=== PATIENT | male | born 1990 | race Caucasian/White ===

== ENCOUNTER 2021-01-22 08:40 | Emergency (ER) | payer OTHER ==
[~2021-01-22] VITALS: Ht 177.8 cm; Wt 117.9 kg
[~2021-01-22 08:40] MED LIST: ATIVAN1 MG PO; BACTRIM DS TAB1 EACH PO; DIFLUCAN150 MG PO; IMODIUM MULTI-1 EACH PO; LAMISIL AT 1% C12 G1 TP; LAMOTRIGINE200 MG PO; NORCO 5-325 TA1 EACH PO; OXCARBAZEPINE600 MG PO; TOPAMAX 100 MG100 MG NG; TOPAMAX 100 MG100 MG PO; TOPAMAX100 MG PO; ZOFRAN ODT4 MG PO; ZOFRAN4 MG PO; [UNRECOGNIZED DRUG - REMARK]
[2021-01-22 10:00] LABS: ABSOLUTE NEUTROPHILS 3.4 thou/uL (1.4-8.2); BASOPHILS 0.8 % (0.0-2.0); EOSINOPHILS 9.8 % (0.0-3.0); HEMATOCRIT 42.7 % (42.0-52.0); HEMOGLOBIN 14.6 gm/dL (14.0-18.0); LYMPHOCYTES 27.9 % (24.0-44.0); MCHC 34.1 g/dL (28.0-37.0); MONOCYTES 8.9 % (1.0-8.0); PLATELET COUNT 193 thou/uL (150-400); POLYS 52.6 % (36.0-66.0); RDW 12.4 % (10.5-14.5); WBC 6.4 thou/uL (4.0-11.0)
[2021-01-22 10:06] LABS: CALCIUM 8.6 mg/dL (8.5-10.1); CREATININE 1.2 mg/dL (0.7-1.3); POTASSIUM 4.2 mmol/L (3.5-5.1)
[2021-01-22 10:13] LABS: ALBUMIN 3.3 g/dL (3.4-5.0); TOTAL BILIRUBIN 0.3 mg/dL (0.2-1.0); TOTAL PROTEIN 6.3 g/dL (6.4-8.2)
[2021-01-22] MEDS ORDERED: LASIX 20 MG TAB20 MG PO (10:33)
[2021-01-22 10:41] VITALS: BP 106/48
--- NOTE | 2021-01-22 15:16 | EKG ---
[facility] [place] [address] ELECTROCARDIOGRAM REPORT Name: ROBYN KIRBY HOLINESS Room #: [id number] Admission: 01/22/21 Attend Phys: Discharge: 01/22/21 Date of : [birth year] Report #: [id number] [facility] ED Test Date: 2021-01-22 Test Time: 09:05:37 Pat Name: ROBYN KIRBY Department: Room: Gender: M Sourcing Manager: : 1990 Requested By: Melissa Chris Order Number: [id number] MD: Robert Ramos Measurements Intervals [place] Rate: 50 P: 0 AL: 191 QRS: 14 QRSD: 98 T: 30 QT: 435 QTc: 397 Interpretive Statements Sinus rhythm ST elevation suggests acute pericarditis Compared to ECG 01/26/2011 17:07:26 ST (T wave) deviation now present Sinus arrhythmia no longer present Electronically Signed On 01-22-2021 15:16:20 CDT by Robert Ramos [email or web address] <ELECTRONICALLY SIGNED> By: Robert Ramos MD, [facility] 01/22/21 1516 0905 4 Robert Ramos MD, FACC /EPI
== END 2021-01-22 10:42 | disposition home or self-care (01) ==
LOC: ER 08:40
PROVIDERS: Emergency Medicine
DX: R60.0 Localized edema (principal); J45.909 Unspecified asthma, uncomplicated; Z79.899 Other long term (current) drug therapy